=== PATIENT | female | born 1970 | race Caucasian/White ===

== ENCOUNTER 2020-04-28 12:48 | Emergency (ER) | payer SELFPAY ==
[~2020-04-28] VITALS: Ht 157.5 cm; Wt 75.0 kg
[2020-04-28] MEDS ORDERED: IV NORMAL SALINE 1000ML BAG 1,000 ML IV ONE (13:15)
[2020-04-28 13:39] LABS: CALCIUM 8.3 mg/dL (8.5-10.1); CREATININE 0.9 mg/dL (0.6-1.0); GFR 66.3; POTASSIUM 3.5 mmol/L (3.5-5.1)
[2020-04-28 13:45] LABS: ALBUMIN 3.8 g/dL (3.4-5.0); MAGNESIUM 1.7 mg/dL (1.8-2.4); TOTAL BILIRUBIN 0.3 mg/dL (0.2-1.0); TOTAL PROTEIN 7.5 g/dL (6.4-8.2)
[2020-04-28] MEDS ORDERED: IOHEXOL 300 MG/ML 100ML VIAL. IV ONE (13:45)
--- NOTE | 2020-04-28 13:51 | PHYS DOC ---
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 She is also complaining of dizziness and weakness. Patient denies any difficulty breathing or swallowing. Denies any fever. She reports she has had a slight cough. Denies any chest pain. She states she is not on any treatment for Linette's disease. Review of Systems: Review of Systems: Constitutional: Denies fever or chills. [] Eyes: Denies change in visual acuity. [] HENT: Denies nasal congestion or sore throat. [] Respiratory: reports cough, denies shortness of breath. [] Cardiovascular: Denies chest pain or edema. [] GI: Denies abdominal pain, nausea, vomiting, bloody stools or diarrhea. [] : Denies dysuria. [] Musculoskeletal: Reports right neck swelling. Denies back pain or joint pain. [] Integument: Denies rash. [] Neurologic: Reports dizziness and weakness, Denies headache, focal weakness or sensory changes. [] Psychiatric: Denies depression or anxiety. [] Heart Score: Risk Factors: Risk Factors: DM, Current or recent (<one month) smoker, HTN, HLP, family history of CAD, obesity. Risk Scores: Score 0 - 3: 2.5% MACE over next 6 weeks - Discharge Home Score 4 - 6: 20.3% MACE over next 6 weeks - Admit for Clinical Observation Score 7 - 10: 72.7% MACE over next 6 weeks - Early Invasive Strategies Current Medications: Current Medications Medications (Trade) Dose Ordered Sig/Mayda Start Time Stop Time Status Last Admin Dose Admin Iohexol (Omnipaque 300 Mg/ml) 70 ml 1X ONCE 04/28/20 13:45 04/28/20 13:46 UNV Sodium Chloride 1,000 ml @ 1,000 mls/hr 1X ONCE 04/28/20 13:15 04/28/20 14:14 04/28/20 13:15 1,000 MLS/HR Allergies: Allergies: Allergies Coded Allergies Type Severity Reaction Last Updated Verified cephalexin Allergy Severe anaphylaxis 04/28/20 Yes Physical Exam: PE: Constitutional: Well developed, well nourished, no acute distress, non-toxic appearance. [] HENT: Normocephalic, atraumatic, bilateral external ears normal, oropharynx moist, no oral exudates, nose normal. [] Eyes: PERRLA, EOMI, conjunctiva normal, no discharge. [] Neck: Right anterior cervical spine with a palpable mobile mild sized mass with no tenderness or redness, supple, no stridor. Airway is open Cardiovascular:Heart rate regular rhythm, no murmur [] Lungs & Thorax: Bilateral breath sounds clear to auscultation [] Abdomen: Bowel sounds normal, soft, no tenderness, no masses, no pulsatile lindsay s. [] Skin: Warm, dry, no erythema, no rash. [] Back: No tenderness, no CVA tenderness. [] Extremities: No tenderness, no cyanosis, no clubbing, ROM intact, no edema. [] Neurologic: Alert and oriented X 3, normal motor function, normal sensory function, no focal deficits noted. Cranial nerves II through XII intact Psychologic: Affect normal, judgement normal, mood normal. [] Current Patient Data: Labs: Laboratory Tests Test 04/28/20 13:00 Sodium Level 138 mmol/L (136-145) Potassium Level 3.5 mmol/L (3.5-5.1) Chloride Level 100 mmol/L (98-107) Carbon Dioxide Level 28 mmol/L (21-32) Anion Gap 10 (6-14) Blood Urea Nitrogen 8 mg/dL (7-20) Creatinine 0.9 mg/dL (0.6-1.0) Estimated GFR (Cockcroft-Gault) 66.3 BUN/Creatinine Ratio 9 (6-20) Glucose Level 115 mg/dL (70-99) H Calcium Level 8.3 mg/dL (8.5-10.1) L Magnesium Level 1.7 mg/dL (1.8-2.4) L Total Bilirubin 0.3 mg/dL (0.2-1.0) Aspartate Amino Transferase (AST) 21 U/L (15-37) Alanine Aminotransferase (ALT) 16 U/L (14-59) Alkaline Phosphatase 89 U/L (46-116) Total Protein 7.5 g/dL (6.4-8.2) Albumin 3.8 g/dL (3.4-5.0) Albumin/Globulin Ratio 1.0 (1.0-1.7) Lipase 148 U/L (73-393) Laboratory Tests 04/28/20 13:00 Vital Signs: Vital Signs Date Time Temp Pulse Resp B/P (MAP) Pulse Ox O2 Delivery O2 Flow Rate FiO2 04/28/20 12:48 97.9 89 20 133/80 (97) 99 Room Air 97.9 EKG: EKG: [] Radiology/Procedures: Radiology/Procedures: []PROCEDURE: PORTABLE CHEST 1V PORTABLE CHEST 1V Clinical Indication: Reason: cough / Spl. Instructions: / History: Comparison: None. Findings: The cardiomediastinal silhouette is normal. Lungs are clear. There is no pneumothorax. No pleural effusion is appreciated. No acute bone abnormality. There are old fractures of the right lateral second and third ribs. IMPRESSION: No acute cardiopulmonary process. Electronically signed by: Soy Campbell MD (04/28/2020 1:48 PM) [id number] DICTATED and SIGNED BY: SOY CAMPBELL MD DATE: 04/28/20 1348 PROCEDURE: CT HEAD WO CONTRAST CT head without contrast. CT neck with contrast. Contrast: 75 mL Omnipaque 350 intravenous contrast. HISTORY: Linette's thyroiditis. Right neck swelling. Dizziness. Right thyroid mass. CT head findings: No intracranial hemorrhage, mass, hydrocephalus, extra-axial fluid collections or infarction. No acute ischemic change evident. Orbits, mastoids and bones are unremarkable. There is a chronic appearing mild left medial orbital wall blowout fracture protruding into the posterior ethmoid sinuses with a small focus of extraconal fat of doubtful significance. IMPRESSION: No acute intracranial CT abnormality. CT neck findings: Multinodular thyroid with thyromegaly and hypervascular enhancing thyroid nodules replacing the entire gland, the largest area of nodularity at the left lobe replaces most of the lobe measuring 6 cm craniocaudal by 4.5 cm AP by 3.5 cm transverse. Enlarged thyroid slightly deviates the trachea without significant narrowing at the lower neck. The BB marker at the right lower neck overlies the nodularity of the right thyroid lobe which is positioned slightly more anteriorly relative to the left thyroid nodule. Army Officer spaces, parapharyngeal spaces, sublingual space, submandibular space, salivary glands, nasopharynx, oral cavity, pharynx, larynx unremarkable. Lung apices and bones are unremarkable. No adenopathy. IMPRESSION:PROCEDURE: CT HEAD WO CONTRAST CT head without contrast. CT neck with contrast. Contrast: 75 mL Omnipaque 350 intravenous contrast. HISTORY: Linette's thyroiditis. Right neck swelling. Dizziness. Right thyroid mass. CT head findings: No intracranial hemorrhage, mass, hydrocephalus, extra-axial fluid collections or infarction. No acute ischemic change evident. Orbits, mastoids and bones are unremarkable. There is a chronic appearing mild left medial orbital wall blowout fracture protruding into the posterior ethmoid sinuses with a small focus of extraconal fat of doubtful significance. IMPRESSION: No acute intracranial CT abnormality. CT neck findings: Multinodular thyroid with thyromegaly and hypervascular enhancing thyroid nodules replacing the entire gland, the largest area of nodularity at the left lobe replaces most of the lobe measuring 6 cm craniocaudal by 4.5 cm AP by 3.5 cm transverse. Enlarged thyroid slightly deviates the trachea without significant narrowing at the lower neck. The BB marker at the right lower neck overlies the nodularity of the right thyroid lobe which is positioned slightly more anteriorly relative to the left thyroid nodule. Army Officer spaces, parapharyngeal spaces, sublingual space, submandibular space, salivary glands, nasopharynx, oral cavity, pharynx, larynx unremarkable. Lung apices and bones are unremarkable. No adenopathy. IMPRESSION: Multinodular thyroid with ill-defined hypervascular nodules replacing the thyroid gland as described above. No adenopathy in the neck. Exposure: One or more of the following individualized dose reduction techniques were utilized for this examination: 1. Automated exposure control 2. Adjustment of the mA and/or kV according to patient size 3. Use of iterative reconstruction technique Electronically signed by: Bobby Al MD (04/28/2020 2:43 PM) [id number] DICTATED and SIGNED BY: BOBBY AL MD DATE: 04/28/20 1443 Exposure: One or more of the following individualized dose reduction techniques were utilized for this examination: 1. Automated exposure control 2. Adjustment of the mA and/or kV according to patient size 3. Use of iterative reconstruction technique Electronically signed by: Bobby Al MD (04/28/2020 2:43 PM) [id number] DICTATED and SIGNED BY: BOBBY AL MD DATE: 04/28/20 1443 Course & Med Decision Making: Course & Med Decision Making Pertinent Labs and Imaging studies reviewed. (See chart for details) This is a 49-year-old female patient presenting to the ED today complaining of a mass on her neck that she noted this morning when she woke up. Also complaining of dizziness and weakness. Patient's labs are negative for any acute findings including a normal TSH. CT of the head is negative, chest x-ray is negative, neck soft tissue CT noted for-Multinodular thyroid with ill-defined hypervascular nodules replacing the thyroid gland. No adenopathy in the neck. Spoke to transfer line, Dr. Paniagua ENT requested patient to be discharged to home and call the office on Thursday and they will set her up for an outpatient follow-up. Information given to patient. Discharge to home. Dragon Disclaimer: Dragon Disclaimer: This electronic medical record was generated, in whole or in part, using a voice recognition dictation system. Departure Departure Impression: Primary Impression: Thyroid mass Disposition: HOME, SELF-CARE Condition: STABLE Patient Instructions: Thyroid Diseases Additional Instructions: You were evaluated in the emergency room for thyroid mass. Dr. Paniagua ENT specialist at [facility] requested you call his office on Thursday. His office number is [phone] and they will give you an appointment to see him as soon as possible. 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
[2020-04-28] MEDS ORDERED: CONTRAST GIVEN. MC PRN (14:00)
[2020-04-28 14:26] LABS: BILIRUBIN,URINE NEGATIVE (NEG); CLARITY,URINE CLEAR; COLOR,URINE YELLOW; NITRITE,URINE NEGATIVE (NEG); PH,URINE 7.5 (<5.0-8.0); PROTEIN,URINE NEGATIVE (NEG-TRACE); UROBILINOGEN,URINE 0.2 mg/dL (0.2 mg/dL)
[2020-04-28 14:34] LABS: BARBITURATES NEG (NEG); BENZODIAZEPINES NEG (NEG); CANNABINOIDS NEG (NEG); COCAINE NEG (NEG); METHADONE NEG (NEG); OPIATES NEG (NEG); PHENCYCLIDINE NEG (NEG)
[2020-04-28 14:35] LABS: AMPHETAMINE/METHAMPHETAMINE NEG (NEG)
[2020-04-28 14:36] LABS: BACTERIA,URINE MANY /HPF (0-FEW); RBC,URINE 0 /HPF (0-2); SQUAMOUS EPITHELIAL CELL,UR MANY /LPF
[2020-04-28 14:41] LABS: BASO % 1 % (0-3); EOS # 0.1 x10^3/uL (0.0-0.7); EOS % 1 % (0-3); HEMATOCRIT 36.5 % (36.0-47.0); LYMPH # 1.6 x10^3/uL (1.0-4.8); LYMPH % 26 % (24-48); MEAN CORPUSCULAR HEMOGLOBIN 27 pg (25-35); MEAN CORPUSCULAR HGB CONC 33 g/dL (31-37); MEAN CORPUSCULAR VOLUME 82 fL (79-100); MONO # 0.5 x10^3/uL (0.0-1.1); MONO % 8 % (0-9); NEUT # 4.2 x10^3/uL (1.8-7.7); NEUT % 65 % (31-73); PLATELET COUNT 236 x10^3/uL (140-400); RED BLOOD COUNT 4.42 x10^6/uL (3.50-5.40); RED CELL DISTRIBUTION WIDTH 17.7 % (11.5-14.5); WHITE BLOOD COUNT 6.4 x10^3/uL (4.0-11.0)
--- NOTE | 2020-04-28 14:46 | RAD ---
CT head without contrast. CT neck with contrast. Contrast: 75 mL Omnipaque 350 intravenous contrast. HISTORY: Linette's thyroiditis. Right neck swelling. Dizziness. Right thyroid mass. CT head findings: No intracranial hemorrhage, mass, hydrocephalus, extra-axial fluid collections or infarction. No acute ischemic change evident. Orbits, mastoids and bones are unremarkable. There is a chronic appearing mild left medial orbital wall blowout fracture protruding into the posterior ethmoid sinuses with a small focus of extraconal fat of doubtful significance. IMPRESSION: No acute intracranial CT abnormality. CT neck findings: Multinodular thyroid with thyromegaly and hypervascular enhancing thyroid nodules replacing the entire gland, the largest area of nodularity at the left lobe replaces most of the lobe measuring 6 cm craniocaudal by 4.5 cm AP by 3.5 cm transverse. Enlarged thyroid slightly deviates the trachea without significant narrowing at the lower neck. The BB marker at the right lower neck overlies the nodularity of the right thyroid lobe which is positioned slightly more anteriorly relative to the left thyroid nodule. Research Chemist spaces, parapharyngeal spaces, sublingual space, submandibular space, salivary glands, nasopharynx, oral cavity, pharynx, larynx unremarkable. Lung apices and bones are unremarkable. No adenopathy. IMPRESSION: Multinodular thyroid with ill-defined hypervascular nodules replacing the thyroid gland as described above. No adenopathy in the neck. Exposure: One or more of the following individualized dose reduction techniques were utilized for this examination: 1. Automated exposure control 2. Adjustment of the mA and/or kV according to patient size 3. Use of iterative reconstruction technique Electronically signed by: Austin Al MD (04/28/2020 2:43 PM) [id number]
[2020-04-28 14:50] LABS: PROTHROMBIN TIME PATIENT 12.6 SEC (11.7-14.0)
[2020-04-28 19:00] VITALS: BP 134/81
--- NOTE | 2020-04-29 04:26 | EKG ---
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
== END 2020-04-28 19:26 | disposition home or self-care (01) ==
LOC: ER 12:48
DX: E07.9 Disorder of thyroid, unspecified (principal); R42 Dizziness and giddiness; R53.1 Weakness; R60.0 Localized edema; J45.909 Unspecified asthma, uncomplicated; Z86.718 Personal history of other venous thrombosis and embolism; Z90.89 Acquired absence of other organs; Z90.49 Acquired absence of other specified parts of digestive tract; Z98.51 Tubal ligation status; Z98.890 Other specified postprocedural states; Z88.8 Allergy status to other drugs, medicaments and biological substances
CPT/HCPCS: 36415; 70450; 70491; 71045; 80053; 80307; 81001; 82553; 83690; 83735; 83880; 84443; 84484; 85025; 85610; 93005; 96360; 99285; J7030; Q9967